=== PATIENT | female | born 1940 | race Two or more races ===

== ENCOUNTER → 2018-07-20 | Outpatient (CLI) | payer OTHER ==
[~2018-07-20] MED LIST: LAMISIL250 MG; PREVACID15 MG; PREVACID30 MG PO; PROTONIX20 MG PO
== END | disposition home or self-care (01) ==
LOC: MAMO-SONO 11:24 → SONOGRAMA 07-26 08:45
DX: Z12.31 Encounter for screening mammogram for malignant neoplasm of breast (principal); Z87.898 Personal history of other specified conditions; R10.84 Generalized abdominal pain

== ENCOUNTER → 2018-12-29 | Outpatient (CLI) | payer OTHER | END | disposition home or self-care (01) | LOC: NUCLEAR 11:50 | DX: M81.0 Age-related osteoporosis without current pathological fracture (principal) ==

== ENCOUNTER 2019-02-22 09:10 | Outpatient (CLI) | payer OTHER | END 2019-02-22 09:18 | disposition home or self-care (01) | LOC: SONOGRAMA 09:10 | DX: R10.84 Generalized abdominal pain (principal) ==

== ENCOUNTER → 2019-02-22 09:58 | Outpatient (CLI) | payer OTHER | END | disposition home or self-care (01) | LOC: LAB 09:00 | DX: E03.8 Other specified hypothyroidism (principal); E11.9 Type 2 diabetes mellitus without complications; I10 Essential (primary) hypertension; E78.2 Mixed hyperlipidemia; Z12.11 Encounter for screening for malignant neoplasm of colon ==

== ENCOUNTER 2019-05-03 11:58 | Outpatient (CLI) | payer OTHER | END 2019-05-03 15:00 | disposition home or self-care (01) | LOC: LAB 11:58 | DX: N39.0 Urinary tract infection, site not specified (principal) ==

== ENCOUNTER 2019-05-04 08:12 | Outpatient (CLI) | payer OTHER | END 2019-05-04 09:12 | disposition home or self-care (01) | LOC: SONOGRAMA 08:12 | DX: R10.84 Generalized abdominal pain (principal); N39.0 Urinary tract infection, site not specified ==

== ENCOUNTER 2019-08-08 09:29 | Outpatient (CLI) | payer OTHER | END 2019-08-08 09:39 | disposition home or self-care (01) | LOC: LAB 09:29 | DX: E11.9 Type 2 diabetes mellitus without complications (principal); E03.8 Other specified hypothyroidism; I10 Essential (primary) hypertension; E78.2 Mixed hyperlipidemia ==

== ENCOUNTER → 2021-08-20 08:49 | Outpatient (CLI) | payer OTHER | END | disposition home or self-care (01) | LOC: LAB 08:34 | PROVIDERS: ATTEND Internal Medicine Cardiovascular Disease | DX: I10 Essential (primary) hypertension (principal); E11.9 Type 2 diabetes mellitus without complications; E03.8 Other specified hypothyroidism; E78.2 Mixed hyperlipidemia; E55.9 Vitamin D deficiency, unspecified; Z12.11 Encounter for screening for malignant neoplasm of colon ==

== ENCOUNTER 2021-08-20 09:33 | Outpatient (CLI) | payer OTHER | END 2021-08-20 09:36 | disposition home or self-care (01) | LOC: MAMO-SONO | PROVIDERS: ATTEND Internal Medicine Cardiovascular Disease | DX: N63.11 Unspecified lump in the right breast, upper outer quadrant (principal); Z12.31 Encounter for screening mammogram for malignant neoplasm of breast ==

== ENCOUNTER 2022-08-25 09:29 | Outpatient (CLI) | payer OTHER | END 2022-08-25 15:22 | disposition home or self-care (01) | LOC: MAMO-SONO 09:29 | PROVIDERS: ATTEND Internal Medicine Cardiovascular Disease | DX: N63.21 Unspecified lump in the left breast, upper outer quadrant (principal) ==

== ENCOUNTER 2022-08-27 08:52 | Outpatient (CLI) | payer OTHER | END 2022-08-27 12:15 | disposition home or self-care (01) | LOC: TOM 08:52 | PROVIDERS: ATTEND Internal Medicine Gastroenterology | DX: K57.92 Diverticulitis of intestine, part unspecified, without perforation or abscess without bleeding (principal) | CPT/HCPCS: 74177; Q9965 ==